=== PATIENT | female | born 1970 ===

== ENCOUNTER 2017-02-18 12:57 | Inpatient (IN) | payer MEDICAID ==
[2017-02-18 12:57] VITALS: BMI 25.7
[2017-02-18] MEDS ORDERED: Sodium Chloride 0.9% 1,000 ML IV ONE (13:32)
[2017-02-18] MEDS ORDERED: Sodium Chloride 0.9% 1,000 ML ONE (14:01)
[2017-02-18 14:13] LABS: BASO # 0.1 K/uL (0.0-0.2); BASO % 0.4 % (0.0-2.0); EOS % 0.2 % (0.0-4.0); HEMOGLOBIN 12.7 g/dL (11.0-16.0); LYMPH # 1.7 K/uL (1.0-4.3); LYMPH % 8.6 % (20.0-40.0); MEAN CELL VOLUME 96.8 fL (81.0-99.0); MEAN CORPUSCULAR HEMOGLOBIN 31.8 pg (27.0-31.0); MEAN CORPUSCULAR HGB CONC 32.8 g/dL (33.0-37.0); MEAN PLATELET VOLUME 7.3 fL (7.2-11.7); MONO % 5.2 % (0.0-10.0); NEUT # 16.7 K/uL (1.8-7.0); NEUT % 85.6 % (50.0-75.0); PLATELET COUNT 304 K/uL (130-400); RED CELL DISTRIBUTION WIDTH 14.2 % (11.5-14.5); WHITE BLOOD COUNT 19.5 K/uL (4.8-10.8)
[2017-02-18 14:16] LABS: HCG,QUALITATIVE URINE NEGATIVE (NEGATIVE)
[2017-02-18 14:20] LABS: SQUAMOUS EPITHIAL < 1 /hpf (0-5); URINE BILIRUBIN NEGATIVE (NEGATIVE); URINE BLOOD NEGATIVE (NEGATIVE); URINE CLARITY Clear (Clear); URINE COLOR Yellow (YELLOW); URINE GLUCOSE (UA) NORMAL (Normal); URINE LEUKOCYTE ESTERASE NEG Leu/uL (Negative); URINE NITRATE NEGATIVE (NEGATIVE); URINE PROTEIN NEGATIVE (NEGATIVE); URINE UROBILINOGEN NORMAL mg/dL (0.2-1.0)
[2017-02-18 14:22] LABS: ALBUMIN 3.7 g/dL (3.5-5.0)
[2017-02-18 14:25] LABS: AST/SGOT 38 U/L (14-36); BLOOD UREA NITROGEN 11 mg/dL (7-17); GFR AFRICAN-AMERICAN > 60; GFR NON-AFRICAN AMERICAN > 60
[2017-02-18 14:26] LABS: ALT/SGPT 33 U/L (9-52); CALCIUM 8.6 mg/dl (8.6-10.4)
[2017-02-18] MEDS ORDERED: Iohexol 240 (50 ml) PO STA (14:30)
[2017-02-18 14:46] LABS: LYMPHOCYTE 14 % (20-40); MONOCYTE 4 % (0-10); NEUTROPHIL 82 % (50-75); PLATELET ESTIMATE NORMAL (NORMAL); TOTAL CELLS COUNTED 100
[2017-02-18] MEDS ORDERED: Iohexol 240 (50 ml) ONE (14:50)
--- NOTE | 2017-02-18 15:12 | C.PDOC ---
Time Seen by Provider: 02/18/17 13:19 Chief Complaint (Nursing): Abdominal Pain History Per: Patient Onset/Duration Of Symptoms: Days (3) Current Symptoms Are (Timing): Still Present Severity: Moderate Location Of Pain/Discomfort: RLQ, Suprapubic Quality Of Discomfort: "Pain" Exacerbating Factors: None Alleviating Factors: None Additional History Per: Prior Records Past Medical History Reviewed: Historical Data, Nursing Documentation, Vital Signs Vital Signs: Last Vital Signs Temp 98.6 F 02/18/17 16:28 Pulse 77 02/18/17 16:28 Resp 20 02/18/17 16:28 BP 110/74 02/18/17 16:28 Pulse Ox 99 02/18/17 21:07 - Medical History PMH: Anxiety, Arthritis, Asthma, Back Problems, Bipolar Disorder, Depression, Migraine, Pneumonia (4 YRS. AGO), Post Traumatic Stress Disorder Surgical History: Endoscopy Other Surgeries: Surgeries for ovarian cysts. - [facility] Procedures COLONOSCOPY (06/13/13) CYSTOSCOPY NEC (10/24/13) ESOPHAGOGASTRODUODENOSCOPY [EGD] W/CLOSED BIOPSY (06/23/13) GROUP PSYCHOTHERAPY (08/28/16) INCISE BARTHOLIN'S GLAND (09/10/14) MEDICATION MANAGEMENT (08/28/16) Family History: States: Unknown Family Hx - Social History Hx Tobacco Use: Yes Hx Alcohol Use: Yes Hx Substance Use: No - Immunization History Hx Tetanus Toxoid Vaccination: No Hx Influenza Vaccination: Yes Hx Pneumococcal Vaccination: No Review Of Systems Except As Marked, All Systems Reviewed And Found Negative. Constitutional: Negative for: Weakness Cardiovascular: Negative for: Chest Pain Respiratory: Negative for: Shortness of Breath Gastrointestinal: Positive for: Vomiting (resolved), Abdominal Pain, Diarrhea ( resolved) Genitourinary: Negative for: Dysuria Musculoskeletal: Negative for: Neck Pain, Back Pain Skin: Negative for: Rash Neurological: Negative for: Weakness, Numbness, Seizures, Altered Mental Status Physical Exam - Physical Exam Appears: Non-toxic, No Acute Distress Skin: Normal Color, Warm, Dry, No Rash Head: Atraumatic, Normacephalic Eye(s): bilateral: Normal Inspection, PERRL, EOMI Neck: Normal ROM, Supple Cardiovascular: Rhythm Regular Respiratory: Normal Breath Sounds, No Accessory Muscle Use Gastrointestinal/Abdominal: Soft, Tenderness (RLQ) Back: No CVA Tenderness Extremity: Normal ROM Neurological/Psych: Oriented x3, Normal Motor, Normal Sensation ED Course And Treatment - Laboratory Results Result Diagrams: 02/18/17 14:09 02/18/17 14:09 Lab Interpretation: Abnormal Interpretation Of Abnormal: Leukocytosis Urine POC: Negative O2 Sat by Pulse Oximetry: 99 Pulse Ox Interpretation: Normal - CT Scan/US CT abd/pelv Other Rad Studies (CT/US): Read By Radiologist, Radiology Report Reviewed CT/US Interpretation: IMPRESSION: There is a moderate-sized hypoattenuation cystic lesion in the right aspect of the pelvis which appears to be associated with a serpiginous tubular focus of similar density. Rule out hydro/pyosalpinx -TOA or possibly TOA with ovarian cyst . Pelvic ultrasound recommended. Pelvic US Other Rad Studies (CT/US): Read By Radiologist, Radiology Report Reviewed CT/US Interpretation: IMPRESSION: Fibroid uterus; minimal free fluid in the right adnexa; complex. right adnexal cyst and dilated tubular structure, findings suspicious for. tubo-ovarian abscess Disposition Discussed With : Noni Allen Comment: She evaluated pt in the ED and admitted to her service. Doctor Will See Patient In The: ED Counseled Patient/Family Regarding: Studies Performed, Diagnosis - Disposition Disposition: HOSPITALIZED Disposition Time: 21:00 Condition: SERIOUS - Clinical Impression Clinical Impression: Right tubo-ovarian abscess
--- NOTE | 2017-02-18 18:37 | CT ---
PROCEDURE: CT Abdomen and Pelvis HISTORY: RLQ pain COMPARISON: Comparison made with CT scan abdomen pelvis 05/28/2014 the TECHNIQUE: Contiguous axial images of the abdomen and pelvis performed following oral and intravenous injection of approximately 100 cc of Visipaque 320 contrast material. The additional 2 dimensional sagittal and coronal reformats provided. Given. Coronal and Sagittal reformats generated. Radiation dose: Total exam DLP = 270. 14 mGy-cm. This CT exam was performed using one or more of the following dose reduction techniques: Automated exposure control, adjustment of the mA and/or kV according to patient size, and/or use of iterative reconstruction technique. 02/18/2017 Total exam DLP = mGy-cm. FINDINGS: LOWER THORAX: Minor atelectasis both posterior lower lung davila. No focal consolidation effusion or basilar pneumothorax. Small hiatal hernia. Heart size is within range of normal. No significant pericardial effusion. LIVER: The liver exhibits normal size measuring approximately 16 cm in CC dimension. No obvious hepatic mass collection or calcification. Suspect minimal fatty hepatic infiltration Portal and splenic veins are opacified. GALLBLADDER AND BILE DUCTS: Gallbladder is physiologically distended. No evidence of intraluminal gallbladder calculi. PANCREAS: Visualized portions of the pancreas unremarkable. No obvious pancreatic mass collection or calcification. No significant pancreatic ductal dilatation. SPLEEN: Spleen exhibits normal size and attenuation pattern without mass collection or calcification. ADRENALS: There are no adrenal lesions. KIDNEYS AND URETERS: Kidneys demonstrate symmetric nephrograms. No evidence of nephrolithiasis or hydronephrosis. BLADDER: Urinary bladder physiologically distended. No evidence of intraluminal urinary bladder calculi. REPRODUCTIVE: There is a rounded approximately 4.2cm t x 4.0cm cc x 3.7 cm ap hyperdense mass lesion in the right aspect of the pelvis with and adjacent serpiginous tubular like structure adjacent to the superior margin of this hyperdense focus. Findings could represent hydro/pyosalpinx -TOA or possibly TOA with ovarian cyst . Recommend followup pelvic ultrasound for further evaluation. . APPENDIX: Normal-appearing appendix best seen on axial image number [id number] and coronal image number [id number]. . No evidence of periappendiceal inflammatory changes BOWEL: Evaluation of the bowel is somewhat limited due to incomplete opacification. Stomach is distended with oral contrast material. Visualized loops of small bowel exhibit normal contour and caliber. No evidence of acute mechanical small bowel obstruction. Oral contrast material has extended into the colon to the level of the distal descending colon. Suspect few colonic diverticula along the sigmoid colon. No radiographic evidence of acute diverticulitis. PERITONEUM: Unremarkable. No fluid collection. No free air. LYMPH NODES: Unremarkable. No enlarged lymph nodes. VASCULATURE: No evidence of abdominal aortic or iliac artery aneurysms. BONES: The osseous structures intact. Minor degenerative spondylosis lumbar spine. OTHER FINDINGS: None. IMPRESSION: There is a moderate-sized hypoattenuation cystic lesion in the right aspect of the pelvis which appears to be associated with a serpiginous tubular focus of similar density. Rule out hydro/pyosalpinx -TOA or possibly TOA with ovarian cyst . Pelvic ultrasound recommended. Note that these findings were discussed with Dr. Elias at approximately 6:30 p.m. with written down and read back verification.
[2017-02-18] MEDS ORDERED: cefOXitin IV 2 gm in Dextrose 2 GM/50 ML BAG IVPB ONE (18:50)
[2017-02-18] MEDS ORDERED: Doxycycline 100 mg Inj ONE (19:28)
--- NOTE | 2017-02-18 20:30 | US ---
EXAM: US Pelvis Complete, Transabdominal CLINICAL HISTORY: 46 years old, female; Abnormal findings; Abnormal imaging test; Additional info: Possible right toa on CT scan. TECHNIQUE: Real-time transabdominal pelvic ultrasound (complete) with image documentation. COMPARISON: There are no prior studies for comparison. FINDINGS: Uterus: Uterus measures approximately 7.6 x 3.6 x 4.6 cm. Endometrium measures approximately 4.8 mm in width. There is a 2.3 x 2.3 x 2.2 cm posterior fibroid. Right ovary: Right ovary measures approximately 5.4 x 4.3 x 5 cm. There is a 3 x 3.7 x 3.4 cm cyst. There is expected blood flow on Doppler imaging Left ovary: Left ovary measures approximately 2.4 x 1.1 cm. Free fluid: No free fluid. Bladder: Bladder is incompletely distended IMPRESSION: Fibroid uterus; right ovarian cyst EXAM: US Pelvis, Transvaginal CLINICAL HISTORY: 46 years old, female; Abnormal findings; Abnormal imaging test; Additional info: Possible right toa on CT scan. TECHNIQUE: Real-time transvaginal pelvic ultrasound (complete) with image documentation. Transvaginal imaging was used for better evaluation of the endometrium and adnexa. EXAM DATE/TIME: 02/18/2017 6:40 PM COMPARISON: There are no studies for comparison. FINDINGS: Uterus : Uterus measures approximately 8.3 x 5.4 x 5.4 cm. There is a nabothian cyst in the cervix. The endometrial stripe measures 6.4 mm in width. There is minimal fluid in the endometrium at the fundus. There is a 2.3 x 2 x 2.5 cm posterior fibroid. Right ovary and adnexa: Right ovary measures approximately 6.08 x 4.24 x 5.83 cm. There are follicles in the right ovary. There is a 4 x 3 x 4 cm complex cyst. There is peripheral hyperemia.. There is a complex tubular structure in the right adnexa containing complex fluid. Left ovary: Left ovary measures approximately 1.98 x 1.44 x 1.8 cm. There is expected blood flow on Doppler imaging Free fluid: There is a small amount of free fluid in the right adnexa IMPRESSION: Fibroid uterus; minimal free fluid in the right adnexa; complex right adnexal cyst and dilated tubular structure, findings suspicious for tubo-ovarian abscess
--- NOTE | 2017-02-18 23:23 | CP.PCM.HP ---
History of Present Illness - History of Present Illness History of Present Illness: 46 y.o. P1182, LMP 2012, admitted for IV antibiotic therapy for presumed right tubo-ovarian complex - S/P pelvic ultrasound: right ovary 6.08 x 4.24 x 5.83 cm with 4 x 3 x 4 cm complex cyst with peripheral hyperemia; and a complex tubular structure in the right adnexa containing complex fluid. Patient presented to E.D. today c/o severe RLQ pain, pain scale 10/10; onset 3 days ago associated with nausea, vomiting and diarrhea - all of which have subsided since then. Pain described as sharp, stabbing, non radiating; relieved with combination of tylenol and gabapentin; however, worsened earlier this morning, prompting E.D. visit. Also, experienced probable fever 2 nights ago; with chills, woke up in sweats at one point during the night. No fever since. Of note: experienced 1 episode of vaginal spotting 1 month ago; lasted 1 week; first time since LMP. Patient admits to sexual activity with 2 partners: one relationship is of 3 years' duration; the other, 2 weeks. Does not use condoms all the time. P Ob: x 2: 1985, FT male, 6lb 14 1/2 oz; no complications. 1997, (28 -30 weeks), female, 4lb 5oz; no other complications. Both delivered at [facility]. Spont ab x 6: 5 at 2-3 months; 1 at 5 months - "stillborn"; no D&C. VTOP x 2: both 2-3 months; no complications. 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 Denies other STIs. No prior knowledge of leiomyoma; (+) long h/o ovarian cysts. Last Pap/Museum Assistant visit 2013. Most recent mammogram 2014. PMH: (+) h/o asthma - induced by cigarette smoking. Does not recall definite last asthma attack. PSH: D&C x 2. Reportedly 9 surgeries for recurrent ovarian cysts: 1 minilap; 8 via laparoscope. Meds: gabapentin, PRN - muscular pain NKDA Soc Hx: (+) tobacco use: 1/2 ppd x 31 years. Denies illicit drug use. Soc EtOH use - 2-3 beers on weekends. Lives with her Jessica. Currently on disability . Fam Hx: Mother age 54 - liver cirrhosis; h/o chr alcohol abuse. Father - hx unknown. Denies fam h/o cancer Present on Admission - Present on Admission Any Indicators Present on Admission: No Review of Systems - Review of Systems All systems: reviewed and no additional remarkable complaints except - Constitutional Constitutional: Fever - Gastrointestinal Gastrointestinal: Diarrhea, Nausea, Vomiting - Reproductive: Female Reproductive:Female: Abnormal Vaginal Bleeding Past Patient History - Infectious Disease Hx of Infectious Diseases: None - Tetanus Immunizations Tetanus Immunization: Unknown - Past Medical History & Family History Past Medical History?: Yes - Past Social History Smoking Status: Heavy Smoker > 10 Cigarettes Daily Alcohol: Social Drugs: Denies Home Situation {Lives}: Alone - CARDIAC Hx Cardiac Disorders: No Hx Hypertension: No - PULMONARY Hx Asthma: Yes Hx Pneumonia: Yes (4 YRS. AGO) - NEUROLOGICAL Hx Migraine: Yes - HEENT Hx HEENT Problems: Yes Hx Cataracts: Yes - HEMATOLOGICAL/ONCOLOGICAL Hx Cancer: No Hx Human Immunodeficiency Virus (HIV): No - MUSCULOSKELETAL/RHEUMATOLOGICAL Hx Arthritis: Yes - GENITOURINARY/GYNECOLOGICAL Hx Sexually Transmitted Disorders: Yes (HSV, age 14) LMP:: 2012 : 10 Para: 2 Termination of : 8 - PSYCHIATRIC Hx Anxiety: Yes Hx Bipolar Disorder: Yes Hx Depression: Yes Hx Post Traumatic Stress Disorder: Yes Hx Substance Use: No - SURGICAL HISTORY Hx Surgeries: Yes Other/Comment: Ovarian cysts x9 - ANESTHESIA Hx Anesthesia: Yes Hx Anesthesia Reactions: No Hx Malignant Hyperthermia: No Meds Allergies/Adverse Reactions: Allergies Allergy/AdvReac Type Severity Reaction Status Date / Time No Known Allergies Allergy Verified 02/18/17 13:10 Physical Exam - Constitutional Appears: Well, No Acute Distress - Head Exam Head Exam: NORMAL INSPECTION - Eye Exam Eye Exam: Normal appearance - ENT Exam ENT Exam: Mucous Membranes Moist - Neck Exam Neck exam: Positive for: Full Rom, Normal Inspection - Respiratory Exam Respiratory Exam: NORMAL BREATHING PATTERN - Cardiovascular Exam Cardiovascular Exam: REGULAR RHYTHM - GI/Abdominal Exam Additional comments: Obese. Soft. (+) mild rebound tenderness in RLQ. - Exam Bimanual exam: Cervical Motion Tendernes, Uterine Tenderness (right adnexal tenderness; (+) fullness in RLQ. Normal, unremarkable findings on left) Results - Vital Signs Recent Vital Signs: Last Vital Signs Temp 98.6 F 02/18/17 16:28 Pulse 77 02/18/17 16:28 Resp 20 02/18/17 16:28 BP 110/74 02/18/17 16:28 Pulse Ox 99 02/18/17 22:07 - Labs Result Diagrams: 02/19/17 06:27 02/19/17 06:27 Assessment & Plan - Assessment and Plan (Free Text) Assessment: Ultrasound and laboratory data reviewed by me personally 46 yo P1182, questionably post menopausal, newly diagnosed leiomyoma, with ultrasound findings, h/o pain, probable fever - consistent with CYRIL. To this end, discussed with patient admission for IV antibiotics. Explained to patient, treatment effectiveness to be best determined in 48 - 72 hours; with the possibility of changing antibiotics given as an option. Patient was concerned about surgery as part of treatment: this was discussed as being a last resort - in face of refractoriness to IV management, or deterioration. Patient expressed an understanding and agrees. Patient is clinically stable. Plan: Admit Regular diet Cefoxitin; doxycycline GC/Chlamydia - sent from [facility] (urine) TFTs FSH, estradiol levels Pain medications - Date & Time Date: 02/18/17 Time: 22:00
[2017-02-18] MEDS ORDERED: Oxycodone/Acetaminophen 5/325 mg Tab PO PRN ×2 (23:45)
[2017-02-19] MEDS: cefOXitin IV 2 gm in Dextrose 2 GM/50 ML BAG IVPB SCH ×3 (03:24→20:40)
[2017-02-19] MEDS: Lactated Ringer's 1,000 ML IV SCH ×2 (03:25→09:49)
[2017-02-19 06:45] LABS: BASO % 0.2 % (0.0-2.0); EOS # 0.1 K/uL (0.0-0.7); EOS % 0.6 % (0.0-4.0); HEMOGLOBIN 11.8 g/dL (11.0-16.0); LYMPH # 2.2 K/uL (1.0-4.3); LYMPH % 14.9 % (20.0-40.0); MEAN CELL VOLUME 97.2 fL (81.0-99.0); MEAN CORPUSCULAR HGB CONC 32.9 g/dL (33.0-37.0); MEAN PLATELET VOLUME 7.6 fL (7.2-11.7); MONO # 0.9 K/uL (0.0-0.8); MONO % 6.1 % (0.0-10.0); NEUT # 11.6 K/uL (1.8-7.0); NEUT % 78.2 % (50.0-75.0); RBC 3.67 Mil/uL (3.80-5.20); RED CELL DISTRIBUTION WIDTH 14.8 % (11.5-14.5); WHITE BLOOD COUNT 14.9 K/uL (4.8-10.8)
[2017-02-19 06:48] LABS: ALBUMIN 3.1 g/dL (3.5-5.0)
[2017-02-19 06:51] LABS: ALT/SGPT 35 U/L (9-52); AST/SGOT 26 U/L (14-36); BLOOD UREA NITROGEN 13 mg/dL (7-17); GFR AFRICAN-AMERICAN > 60; GFR NON-AFRICAN AMERICAN > 60
[2017-02-19 06:52] LABS: CALCIUM 8.3 mg/dl (8.6-10.4)
[2017-02-19 07:08] LABS: FSH 12.9 mIU/mL
[2017-02-19 07:09] LABS: FREE T4 0.92 ng/dL (0.78-2.19)
[2017-02-19 07:34] LABS: ESTRADIOL (E2) 24.5 pg/mL
[2017-02-19 07:56] VITALS: RESP 20
[2017-02-19 16:14] VITALS: TEMP 98.3
--- NOTE | 2017-02-19 16:59 | CP.PCM.PN ---
Subjective - Date & Time of Evaluation Date of Evaluation: 02/19/17 Time of Evaluation: 16:30 - Subjective Subjective: Patient seen and examined at bedside. Per nursing, no acute events overnight. Patient reports that still having pain but has improved slightly. Patient is ambulating and tolerating diet. Patient denies any fevers, chills, headache, dizziness, CP, SOB, urinary symptoms. Objective - Vital Signs/Intake and Output Vital Signs (last 24 hours): Temp Pulse Resp BP Pulse Ox 98.3 F 77 20 127/81 97 02/19/17 16:00 02/19/17 16:00 02/19/17 16:00 02/19/17 16:00 02/19/17 16:00 Intake and Output: 02/19/17 02/19/17 06:59 18:59 Intake Total 1060 Balance 1060 - Medications Medications: Current Medications Acetaminophen (Tylenol 325mg Tab) 650 mg PO Q6 PRN PRN Reason: Fever >100.4 F Last Admin: 02/19/17 13:27 Dose: 650 mg Alprazolam (Xanax) 1 mg PO DAILY [facility] Lactated Ringer's (Lactated Ringer's) 1,000 mls @ 100 mls/hr IV .Q10H [facility] Last Admin: 02/19/17 09:49 Dose: Not Given Cefoxitin Sodium (Mefoxin Iv 2 Gm Duplex) 2 gm in 50 mls @ 50 mls/hr IVPB Q8H [facility] Last Admin: 02/19/17 12:02 Dose: 50 mls/hr Doxycycline Hyclate 100 mg/ (Sodium Chloride) 100 mls @ 100 mls/hr IVPB Q12H [facility] Last Admin: 02/19/17 09:48 Dose: 100 mls/hr Ketorolac Tromethamine (Toradol) 10 mg PO Q6 [facility] Oxycodone/Acetaminophen (Percocet 5/325 Mg Tab) 1 tab PO Q4H PRN PRN Reason: Pain, moderate (4-7) Stop: 02/21/17 23:46 Oxycodone/Acetaminophen (Percocet 5/325 Mg Tab) 2 tab PO Q4H PRN PRN Reason: Pain, severe (8-10) Stop: 02/21/17 23:46 Last Admin: 02/19/17 06:50 Dose: 2 tab Pneumococcal Polyvalent Vaccine (Pneumovax 23 Vaccine) 0.5 ml IM .ONCE ONE Stop: 02/21/17 10:01 Zolpidem Tartrate (Ambien) 10 mg PO HS MAC - Labs Labs: 02/19/17 06:27 02/19/17 06:27 - Constitutional Appears: Well, No Acute Distress - Head Exam Head Exam: ATRAUMATIC, NORMAL INSPECTION - Eye Exam Eye Exam: EOMI, Normal appearance Pupil Exam: NORMAL ACCOMODATION - ENT Exam ENT Exam: Mucous Membranes Moist - Neck Exam Neck Exam: Full ROM - Respiratory Exam Respiratory Exam: Clear to Ausculation Bilateral, NORMAL BREATHING PATTERN - Cardiovascular Exam Cardiovascular Exam: REGULAR RHYTHM, +S1, +S2 - GI/Abdominal Exam GI & Abdominal Exam: Soft, Tenderness, Normal Bowel Sounds. absent: Guarding, Rebound Additional comments: Infraumbilical tenderness to palpation - Extremities Exam Extremities Exam: Full ROM, Normal Inspection - Back Exam Back Exam: NORMAL INSPECTION - Neurological Exam Neurological Exam: Alert, Awake, Oriented x3 - Psychiatric Exam Psychiatric exam: Agitated, Anxious - Skin Skin Exam: Normal Color, Warm Assessment and Plan (1) Right tubo-ovarian abscess Status: Acute - Assessment and Plan (Free Text) Assessment: 1. Stable, afebrile 2. Leukocytosis improving 19.5 -> 14.6 3. Continue Doxycycline and Cefoxitin 4. Pain control - will add Toradol 10mg Q6H scheduled 5. F/U am CBC, GC/CT 6. Patient restarted on home medication - Ambien 10mg QHS, Xanax 1mg QHS 7. Anticipate d/c home tomorrow 8. Patient will need to follow up with AD[facility] RECRU[facility] at [facility] 9. Plan d/w attending
[2017-02-20] MEDS: cefOXitin IV 2 gm in Dextrose 2 GM/50 ML BAG IVPB SCH (04:07)
[2017-02-20 06:41] LABS: BASO # 0.1 K/uL (0.0-0.2); BASO % 0.6 % (0.0-2.0); EOS # 0.1 K/uL (0.0-0.7); EOS % 1.1 % (0.0-4.0); HEMOGLOBIN 12.6 g/dL (11.0-16.0); LYMPH # 2.2 K/uL (1.0-4.3); LYMPH % 19.9 % (20.0-40.0); MEAN CELL VOLUME 97.6 fL (81.0-99.0); MEAN CORPUSCULAR HGB CONC 32.8 g/dL (33.0-37.0); MEAN PLATELET VOLUME 7.5 fL (7.2-11.7); MONO # 0.7 K/uL (0.0-0.8); MONO % 6.5 % (0.0-10.0); NEUT # 8.1 K/uL (1.8-7.0); NEUT % 71.9 % (50.0-75.0); RBC 3.94 Mil/uL (3.80-5.20); RED CELL DISTRIBUTION WIDTH 14.5 % (11.5-14.5); WHITE BLOOD COUNT 11.2 K/uL (4.8-10.8)
--- NOTE | 2017-02-20 08:46 | CP.PCM.PN ---
Subjective - Date & Time of Evaluation Date of Evaluation: 02/20/17 Time of Evaluation: 08:40 - Subjective Subjective: pt was seen at bed side. feels good. pain under control, no n/v, no fever, tolerating deoit, voiding, no vb. and soft,non tender ext no edema,no calf ten wbc is trending down Objective - Vital Signs/Intake and Output Vital Signs (last 24 hours): Temp Pulse Resp BP Pulse Ox 98.1 F 84 20 115/77 99 02/20/17 00:00 02/20/17 00:00 02/20/17 00:00 02/20/17 00:00 02/20/17 00:00 Intake and Output: 02/20/17 02/20/17 06:59 18:59 Intake Total 550 Balance 550 - Medications Medications: Current Medications Acetaminophen (Tylenol 325mg Tab) 650 mg PO Q6 PRN PRN Reason: Fever >100.4 F Last Admin: 02/19/17 13:27 Dose: 650 mg Alprazolam (Xanax) 1 mg PO HS [facility] Last Admin: 02/19/17 22:07 Dose: 1 mg Benztropine Mesylate (Cogentin) 1 mg PO BID [facility] Divalproex Sodium (Depakote Dr) 250 mg PO DAILY [facility] Cefoxitin Sodium (Mefoxin Iv 2 Gm Duplex) 2 gm in 50 mls @ 50 mls/hr IVPB Q8H [facility] Last Admin: 02/20/17 04:07 Dose: 50 mls/hr Doxycycline Hyclate 100 mg/ (Sodium Chloride) 100 mls @ 100 mls/hr IVPB Q12H [facility] Last Admin: 02/20/17 08:35 Dose: 100 mls/hr Ketorolac Tromethamine (Toradol) 10 mg PO Q6 [facility] Last Admin: 02/20/17 05:08 Dose: 10 mg Oxycodone/Acetaminophen (Percocet 5/325 Mg Tab) 1 tab PO Q4H PRN PRN Reason: Pain, moderate (4-7) Stop: 02/21/17 23:46 Oxycodone/Acetaminophen (Percocet 5/325 Mg Tab) 2 tab PO Q4H PRN PRN Reason: Pain, severe (8-10) Stop: 02/21/17 23:46 Last Admin: 02/19/17 06:50 Dose: 2 tab Pneumococcal Polyvalent Vaccine (Pneumovax 23 Vaccine) 0.5 ml IM .ONCE ONE Stop: 02/21/17 10:01 Risperidone (Risperdal Tab) 1 mg PO BID MAC Trazodone HCl (Desyrel) 100 mg PO HS PRN PRN Reason: Insomnia Zolpidem Tartrate (Ambien) 5 mg PO HS [facility] Last Admin: 02/19/17 22:07 Dose: 5 mg - Labs Labs: 02/20/17 06:22 02/19/17 06:27 Assessment and Plan - Assessment and Plan (Free Text) Assessment: 46 yr with TUBOOVARIAN Abcess Plan: plan dc home no sex x 2weeks doxycyline/flagyll x 2weeks tylenol-3, prn f/u in [address] Dove
--- NOTE | 2017-02-20 08:48 | CP.PCM.DIS ---
Provider - Provider Date of Admission: 02/18/17 22:07 Attending physician: Noni Allen MD Time Spent in preparation of Discharge (in minutes): 20 Hospital Course - Lab Results Lab Results: Most Recent Lab Values WBC 11.2 K/uL (4.8-10.8) H 02/20/17 06:22 RBC 3.94 Mil/uL (3.80-5.20) 02/20/17 06:22 Hgb 12.6 g/dL (11.0-16.0) 02/20/17 06:22 Hct 38.5 % (34.0-47.0) 02/20/17 06:22 MCV 97.6 fL (81.0-99.0) 02/20/17 06:22 MCH 32.0 pg (27.0-31.0) H 02/20/17 06:22 MCHC 32.8 g/dL (33.0-37.0) L 02/20/17 06:22 RDW 14.5 % (11.5-14.5) 02/20/17 06:22 Plt Count 322 K/uL (130-400) 02/20/17 06:22 MPV 7.5 fL (7.2-11.7) 02/20/17 06:22 Neut % (Auto) 71.9 % (50.0-75.0) 02/20/17 06:22 Lymph % (Auto) 19.9 % (20.0-40.0) L 02/20/17 06:22 Mccone % (Auto) 6.5 % (0.0-10.0) 02/20/17 06:22 Eos % (Auto) 1.1 % (0.0-4.0) 02/20/17 06:22 Baso % (Auto) 0.6 % (0.0-2.0) 02/20/17 06:22 Neut # 8.1 K/uL (1.8-7.0) H 02/20/17 06:22 Lymph # 2.2 K/uL (1.0-4.3) 02/20/17 06:22 Mccone # 0.7 K/uL (0.0-0.8) 02/20/17 06:22 Eos # 0.1 K/uL (0.0-0.7) 02/20/17 06:22 Baso # 0.1 K/uL (0.0-0.2) 02/20/17 06:22 Neutrophils % (Manual) 82 % (50-75) H 02/18/17 14:09 Lymphocytes % (Manual) 14 % (20-40) L 02/18/17 14:09 Monocytes % (Manual) 4 % (0-10) 02/18/17 14:09 Platelet Estimate Normal (NORMAL) 02/18/17 14:09 RBC Morphology Normal 02/18/17 14:09 Sodium 136 mmol/L (132-148) 02/19/17 06:27 Potassium 3.5 mmol/L (3.6-5.2) L 02/19/17 06:27 Chloride 104 mmol/L (98-107) 02/19/17 06:27 Carbon Dioxide 23 mmol/L (22-30) 02/19/17 06:27 Anion Gap 13 (10-20) 02/19/17 06:27 BUN 13 mg/dL (7-17) 02/19/17 06:27 Creatinine 0.7 MG/DL (0.7-1.2) 02/19/17 06:27 Est GFR ( Amer) > 60 02/19/17 06:27 Est GFR (Non-Af Amer) > 60 02/19/17 06:27 Random Glucose 106 mg/dL (65-105) H 02/19/17 06:27 Calcium 8.3 mg/dl (8.6-10.4) L 02/19/17 06:27 Total Bilirubin 0.5 mg/dL (0.2-1.3) 02/19/17 06:27 AST 26 U/L (14-36) 02/19/17 06:27 ALT 35 U/L (9-52) 02/19/17 06:27 Alkaline Phosphatase 105 U/L (38-126) 02/19/17 06:27 Total Protein 6.2 g/dL (6.3-8.3) L 02/19/17 06:27 Albumin 3.1 g/dL (3.5-5.0) L 02/19/17 06:27 Globulin 3.1 gm/dL (2.2-3.9) 02/19/17 06:27 Albumin/Globulin Ratio 1.0 (1.0-2.1) 02/19/17 06:27 Free T4 0.92 ng/dL (0.78-2.19) 02/19/17 06:27 TSH 3rd Generation 1.06 mIU/L (0.46-4.68) 02/19/17 06:27 Estradiol (E2) Level 24.5 pg/mL 02/19/17 06:27 FSH 3rd Generation 12.9 mIU/mL 02/19/17 06:27 Urine Color Yellow (YELLOW) 02/18/17 14:09 Urine Clarity Clear (Clear) 02/18/17 14:09 Urine pH 6.0 (5.0-8.0) 02/18/17 14:09 Ur Specific [place] 1.014 (1.003-1.030) 02/18/17 14:09 Urine Protein Negative mg/dL (NEGATIVE) 02/18/17 14:09 Urine Glucose (UA) Normal mg/dL (Normal) 02/18/17 14:09 Urine Ketones Negative mg/dL (NEGATIVE) 02/18/17 14:09 Urine Blood Negative (NEGATIVE) 02/18/17 14:09 Urine Nitrate Negative (NEGATIVE) 02/18/17 14:09 Urine Bilirubin Negative (NEGATIVE) 02/18/17 14:09 Urine Urobilinogen Normal mg/dL (0.2-1.0) 02/18/17 14:09 Ur Leukocyte Esterase Neg Maggie/uL (Negative) 02/18/17 14:09 Urine WBC (Auto) 2 /hpf (0-5) 02/18/17 14:09 Urine RBC (Auto) 1 /hpf (0-3) 02/18/17 14:09 Ur Squamous Epith Cells < 1 /hpf (0-5) 02/18/17 14:09 Urine HCG, Qual Negative (NEGATIVE) 02/18/17 14:09 Discharge Exam - Head Exam Head Exam: ATRAUMATIC, NORMAL INSPECTION - Exam Bimanual exam: NORMAL BIMANUAL EXAM Discharge Plan - Discharge Medications Prescriptions: Acetaminophen with Codeine [Tylenol with Codeine #3 Tablet] 1 each PO Q6 #20 tablet Doxycycline Monohydrate 100 mg PO BID #14 tablet Metronidazole [Flagyl] 500 mg PO BID #14 tablet - Follow Up Plan Condition: SERIOUS Disposition: HOME/ ROUTINE Instructions: Abscess (GEN), Bipolar Disorder (DC)
[2017-02-20] MEDS ORDERED: Pneumococcal 23-Valent Vaccine IM ONE ×3 (09:00→10:45)
[2017-02-20] MEDS ORDERED: Divalproex 250 mg DR Tab PO SCH (10:00)
[2017-02-20 12:27] VITALS: BP 117/82; PULSE 91; O2SAT 98
== END 2017-02-20 12:30 | disposition home or self-care (01) | DRG 368 ==
LOC: C.ER 12:57 → C.9E 22:07 → C.3T 23:32
PROVIDERS: ADMIT Obstetrics & Gynecology; ATTEND Obstetrics & Gynecology
DX: N70.03 Acute salpingitis and oophoritis (principal); D72.829 Elevated white blood cell count, unspecified; J45.909 Unspecified asthma, uncomplicated; F17.210 Nicotine dependence, cigarettes, uncomplicated; Z23 Encounter for immunization; F43.10 Post-traumatic stress disorder, unspecified; F31.9 Bipolar disorder, unspecified; F41.8 Other specified anxiety disorders; M19.90 Unspecified osteoarthritis, unspecified site

== ENCOUNTER 2017-05-01 23:25 | Emergency (ER) | payer MEDICAID ==
[2017-05-01 23:26] VITALS: BMI 25.7
[2017-05-01 23:38] VITALS: BP 118/87; PULSE 67; RESP 20; TEMP 97.1; O2SAT 100
--- NOTE | 2017-05-01 23:48 | C.PDOC ---
History Of Present Illness Patient is brought to the ED for psychiatric evaluation after she verbalized suicidal ideation earlier today. Patient states she got upset with her friend this morning and stated that she wanted to kill herself. Patient states this occurred around 16 hours prior to arrival and denies suicidal ideation at present time. Time Seen by Provider: 05/01/17 23:47 Chief Complaint (Nursing): Psychiatric Evaluation History Per: Patient History/Exam Limitations: no limitations Onset/Duration Of Symptoms: Hrs Current Symptoms Are (Timing): Gone Suicide/Self Injury Attempted (Context): None Modifying Factor(s): None Severity: None Pain Scale Rating Of: 0 Associated Symptoms: denies: Suicidal Thoughts, Suicidal Plan Involuntary Hold By: None Recent travel outside of the [place]: No Additional History Per: Patient Past Medical History Reviewed: Historical Data, Nursing Documentation, Vital Signs Vital Signs: Last Vital Signs Temp 97.1 F L 05/01/17 23:37 Pulse 67 05/01/17 23:37 Resp 20 05/01/17 23:37 BP 118/87 05/01/17 23:37 Pulse Ox 100 05/02/17 00:27 - Medical History PMH: Anxiety, Arthritis, Asthma, Back Problems, Bipolar Disorder, Depression, Migraine, Pneumonia (4 YRS. 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14) Surgical History: Endoscopy - [facility] Procedures COLONOSCOPY (06/13/13) CYSTOSCOPY NEC (10/24/13) ESOPHAGOGASTRODUODENOSCOPY [EGD] W/CLOSED BIOPSY (06/23/13) GROUP PSYCHOTHERAPY (08/28/16) INCISE BARTHOLIN'S GLAND (09/10/14) MEDICATION MANAGEMENT (08/28/16) Family History: States: Unknown Family Hx - Social History Hx Tobacco Use: Yes Hx Alcohol Use: No Hx Substance Use: No - Immunization History Hx Tetanus Toxoid Vaccination: No Hx Influenza Vaccination: Yes Hx Pneumococcal Vaccination: No Review Of Systems Constitutional: Negative for: Fever, Chills Cardiovascular: Negative for: Chest Pain, Palpitations Respiratory: Negative for: Cough, Shortness of Breath Gastrointestinal: Negative for: Nausea, Vomiting, Abdominal Pain Skin: Negative for: Rash, Lesions, Jaundice, Bruising Psych: Positive for: Other (previously verbalized suicidal ideation ). Negative for: Suicidal ideation (present time ) Physical Exam - Physical Exam Appears: Non-toxic, No Acute Distress Skin: Warm, Dry Head: Normacephalic Eye(s): bilateral: Normal Inspection Oral Mucosa: Moist Neck: Supple Chest: Symmetrical, No Deformity Cardiovascular: Rhythm Regular, No Murmur Respiratory: No Rales, No Rhonchi, No Wheezing Extremity: Normal ROM Extremity: Bilateral: Atraumatic Neurological/Psych: Oriented x3 Gait: Steady ED Course And Treatment O2 Sat by Pulse Oximetry: 100 (on RA) Pulse Ox Interpretation: Normal Progress Note: Patient was evaluated by line worker and has been cleared for discharge by Dr. Bolden. Disposition Counseled Patient/Family Regarding: Studies Performed, Diagnosis, Need For Followup - Disposition Referrals: Community Mental Health [Outside] Disposition: HOME/ ROUTINE Disposition Time: 23:47 Condition: FAIR Instructions: Mood Disorders (ED), Anxiety (ED) Forms: [facility] ([place]ic) - Clinical Impression Clinical Impression: Adjustment disorder with anxiety - Scribe Statement The provider has reviewed the documentation as recorded by the Scribe (Roxana Glover) Provider Attestation: All medical record entries made by the Scribe were at my direction and personally dictated by me. I have reviewed the chart and agree that the record accurately reflects my personal performance of the history, physical exam, medical decision making, and the department course for this patient. I have also personally directed, reviewed, and agree with the discharge instructions and disposition.
== END 2017-05-02 00:28 | disposition home or self-care (01) ==
LOC: C.ER 23:25
DX: F43.22 Adjustment disorder with anxiety (principal)